=== PATIENT | female | born 1940 | race Caucasian/White ===

== ENCOUNTER 2016-04-11 10:02 | Inpatient (IN) | payer OTHER ==
[~2016-04-11] VITALS: Ht 157.5 cm; Wt 75.5 kg
[~2016-04-11 10:02] MED LIST: ASPIRIN325 MG PO; Advil,Nuprin,Motrin PO; CALCIUM 500 +1 EAC2 PO; CALICUM 500+D1 EACH PO; CIMETIDINE800 MG PO; COZAAR25 MG PO; CRESTOR10 MG PO; CRESTOR5 MG PO; DAILY VITAMIN1 EAC4 PO; ENDOCET 5-3251 EACH PO; ESCITALOPRAM OX10 MG PO; Ecotrin PO; FLAX OIL1000 MG PO; LEVOTHROID25 MCG PO; LEXAPRO10 MG PO; LOVENOX40 MG/0.4 SC; NAPROSYN500 MG PO; PAXIL20 MG PO; PLAQUENIL200 MG PO; PLAVIX75 MG PO; PriLOSEC PO; Protonix PO; TOPROL XL6.25 MG PO; TRAMADOL HCL50 MG PO; Tylenol PM PO; UNITHROID100 MCG PO; ZOFRAN4 MG PO
[2016-04-11 10:49] LABS: EOSINOPHIL (%) 0 % (0-5); HEMATOCRIT 41.4 % (36.0-46.0); IMMATURE GRANULOCYTE (%) 0.2 % (0.0-0.7); IMMATURE GRANULOCYTE COUNT 0.1 K/uL; LYMPHOCYTE COUNT 0.7 K/uL (1.0-2.8); MCH 27.9 PG (29.0-34.0); MCHC 34.3 G/DL (30.0-36.0); MCV 81.3 FL (83-99); MONOCYTE (%) 6.4 % (3-12); MONOCYTE COUNT 0.3 K/uL (0-0.8); NEUTROPHIL (%) 79.5 % (45-76); NEUTROPHIL COUNT 4.1 K/uL (1.8-6.4); PLATELET COUNT 164 K/uL (156-360); RBC DIS.WIDTH-CV 13.8 % (11.8-14.6); RBC DIS.WIDTH-SD 40.3 % (39-53); RED BLOOD COUNT 5.09 M/uL (3.80-5.20); WHITE BLOOD COUNT 5.1 K/uL (4.1-10.2)
[2016-04-11 11:00] LABS: CHLORIDE 107 mEq/L (99-109); POTASSIUM 4.5 mEq/L (3.7-5.4); SODIUM 142 mEq/L (136-147)
[2016-04-11 11:01] LABS: GLUCOSE 98 mg/dL (70-99); INTER. NORMALIZED RATIO 1.1; PROTHROMBIN TIME 10.7 (9.2-11.2); PTT 24.4 (25-32)
[2016-04-11 11:03] LABS: ANION GAP 9 MEQ/L (2-14)
[2016-04-11 11:05] LABS: GFR ESTIMATE (CALCULATED) > 59 mL/min/
[2016-04-11 11:06] LABS: UREA NITROGEN (BUN) 13 mg/dL (9-23)
[2016-04-11 11:13] LABS: TROP-I INTERPRETATION NEGATIVE; TROPONIN-I 0.05 ng/mL (0.0-0.30)
[2016-04-11] MEDS ORDERED: OMEPRAZOLE40 M1 PO (12:30)
[2016-04-11] MEDS ORDERED: VENLAFAXINE HC150 MG PO (12:30)
[2016-04-11] MEDS ORDERED: MELATONIN10 M2 PO (12:31)
[2016-04-11] MEDS ORDERED: ASPIRIN325 MG PO (12:31)
[2016-04-11 13:30] VITALS: BP 117/88
[2016-04-11 15:45] VITALS: BP 110/64
[2016-04-11 18:22] LABS: TROP-I INTERPRETATION NEGATIVE; TROPONIN-I 0.11 ng/mL (0.0-0.30)
[2016-04-11 20:43] VITALS: BP 134/74
[2016-04-11 23:28] LABS: TROP-I INTERPRETATION NEGATIVE; TROPONIN-I 0.22 ng/mL (0.0-0.30)
[2016-04-11 23:54] VITALS: BP 136/63
[2016-04-12 04:16] VITALS: BP 130/65
[2016-04-12 05:52] LABS: HEMATOCRIT 38.8 % (36.0-46.0); MCH 28.4 PG (29.0-34.0); MCHC 33.8 G/DL (30.0-36.0); MEAN PLAT.VOLUME 9.6 uM^3 (9.5-12.4); PLATELET COUNT 128 K/uL (156-360); RBC DIS.WIDTH-CV 13.8 % (11.8-14.6); RBC DIS.WIDTH-SD 41.9 % (39-53); RED BLOOD COUNT 4.62 M/uL (3.80-5.20); WHITE BLOOD COUNT 4.3 K/uL (4.1-10.2)
[2016-04-12 06:17] LABS: ALKALINE PHOSPHATASE 88 IU/L (3-129); ANION GAP 7 MEQ/L (2-14); CHLORIDE 105 MEQ/L (99-109); DIRECT BILIRUBIN 0.1 mg/dL (0.0-0.3); GFR ESTIMATE (CALCULATED) > 59 mL/min/; GLUCOSE 98 mg/dL (70-99); POTASSIUM 4.3 MEQ/L (3.7-5.4); SAMPLE HEMOLYSIS CHECK 0; SAMPLE ICTERIC CHECK 0; SAMPLE LIPEMIA CHECK 0; SODIUM 140 MEQ/L (136-147); TOTAL BILIRUBIN 0.5 MG/DL (0.0-1.0); UREA NITROGEN (BUN) 16 mg/dL (9-23)
[2016-04-12 08:23] VITALS: BP 140/65
[2016-04-12 16:58] VITALS: BP 132/88
[2016-04-12 19:22] VITALS: BP 143/76
[2016-04-12 20:07] LABS: EOSINOPHIL (%) 0 % (0-5); HEMATOCRIT 40.2 % (36.0-46.0); LYMPHOCYTE COUNT 0.3 K/uL (1.0-2.8); MCH 28.9 PG (29.0-34.0); MCHC 35.1 G/DL (30.0-36.0); MCV 82.4 FL (83-99); MEAN PLAT.VOLUME 9.7 uM^3 (9.5-12.4); MONOCYTE COUNT 0.1 K/uL (0-0.8); NEUTROPHIL (%) 94.9 % (45-76); NEUTROPHIL COUNT 5.8 K/uL (1.8-6.4); PLATELET COUNT 149 K/uL (156-360); RBC DIS.WIDTH-CV 13.7 % (11.8-14.6); RBC DIS.WIDTH-SD 41.3 % (39-53); RED BLOOD COUNT 4.88 M/uL (3.80-5.20); WHITE BLOOD COUNT 6.1 K/uL (4.1-10.2)
[2016-04-13 00:11] VITALS: BP 140/73
[2016-04-13 03:24] VITALS: BP 127/68
[2016-04-13 08:22] LABS: HEMATOCRIT 37.9 % (36.0-46.0); MCH 28.9 PG (29.0-34.0); MCHC 34.8 G/DL (30.0-36.0); MCV 82.9 FL (83-99); MEAN PLAT.VOLUME 10.5 uM^3 (9.5-12.4); PLATELET COUNT 174 K/uL (156-360); RBC DIS.WIDTH-SD 41.6 % (39-53); RED BLOOD COUNT 4.57 M/uL (3.80-5.20)
[2016-04-13 08:26] LABS: ABS NEUTROPHIL COUNT 7.63; ANISOCYTOSIS 1+; MICROCYTOSIS OCC; PLAT.SUFFICIENCY ADEQUATE; USER ID TLW
[2016-04-13 08:27] VITALS: BP 142/62
[2016-04-13 08:31] LABS: WHITE BLOOD COUNT 8.6 K/uL (4.1-10.2)
[2016-04-13 09:13] LABS: ANION GAP 8 MEQ/L (2-14); CHLORIDE 109 MEQ/L (99-109); GFR ESTIMATE (CALCULATED) > 59 mL/min/; GLUCOSE 103 mg/dL (70-99); POTASSIUM 4.1 MEQ/L (3.7-5.4); SAMPLE HEMOLYSIS CHECK 0; SAMPLE ICTERIC CHECK 0; SAMPLE LIPEMIA CHECK 0; SODIUM 142 MEQ/L (136-147); UREA NITROGEN (BUN) 14 mg/dL (9-23)
[2016-04-13 11:12] VITALS: BP 129/60
[2016-04-13] MEDS ORDERED: ASPIR-LOW81 MG PO (11:27)
[2016-04-13] MEDS ORDERED: LOPRESSOR25 MG PO (11:27)
[2016-04-13] MEDS ORDERED: BRILINTA90 MG PO (11:27)
[2016-04-13 14:16] LABS: DELETE MACHINE DIFF? YES
== END 2016-04-13 14:41 | disposition home or self-care (01) | DRG 247 ==
LOC: EME 10:02 → 5WEST 12:02 → EDOF 12:02 → 5WEST 12:35 → 4EAST 04-12 16:45
PROVIDERS: Emergency Medicine; Hospitalist; Internal Medicine; Internal Medicine Cardiovascular Disease
DX: I25.110 Atherosclerotic heart disease of native coronary artery with unstable angina pectoris (principal); I47.1 Supraventricular tachycardia; Q25.43 Congenital aneurysm of aorta; I10 Essential (primary) hypertension; E78.2 Mixed hyperlipidemia; E03.9 Hypothyroidism, unspecified; J44.9 Chronic obstructive pulmonary disease, unspecified; G47.33 Obstructive sleep apnea (adult) (pediatric); F32.9 Major depressive disorder, single episode, unspecified; Z66 Do not resuscitate; I25.2 Old myocardial infarction; Z95.5 Presence of coronary angioplasty implant and graft; Z87.891 Personal history of nicotine dependence; Z91.19 Patient's noncompliance with other medical treatment and regimen
CPT/HCPCS: 71010; 80048; 80076; 84484; 85025; 85027; 85347; 85610; 85730; 93005; 99281; 99285; C1725; C1760; C1769; C1874; C1887; C1894; G0378; J1200; J1644; J2250; J2270; J2930; J3010; J3246; J7030; J7050; S0028